=== PATIENT | male | born 1985 | race Caucasian/White ===

== ENCOUNTER 2025-05-13 18:59 | Inpatient (IN) | payer SELFPAY ==
[~2025-05-13] VITALS: Ht 167.6 cm; Wt 79.8 kg
[2025-05-13] MEDS: FOLIC ACID 1 MG, THIAMINE HCL 100 MG, MVI, ADULT NO.1 10 ML in DEXTROSE 5% WATER 1,000 ML IV ONE (19:45)
[2025-05-13] MEDS: SODIUM CHLORIDE 0.9% (SEPSIS BOLUS) IV ONE (19:56)
[2025-05-13] MEDS: PIPERACILLIN/TAZO 3.375G/50ML 50 ML IV ONE (19:57)
[2025-05-13] MEDS: LORAZEPAM 2MG/ML UD SYRINGE IV NR (19:57)
[2025-05-13 19:59] LABS: HEMATOCRIT. 31.6 % (42.0-52.0); HEMOGLOBIN. 10.7 g/dL (14.0-18.0); MEAN PLATELET VOLUME 10.2 fl (7.4-10.4); PLATELET 190 x1000/uL (130-400); RED BLOOD CELL COUNT 3.56 mill/uL (4.7-6.1); RED CELL DISTRIBUTION WIDTH 15.8 % (11.6-14.6)
[2025-05-13 20:10] LABS: LYMPHOCYTES % MANUAL 4.0 % (20.0-50.0); MONOCYTES % MANUAL 7.0 % (2.0-8.0); NEUTROPHILS % MANUAL 89.0 % (45.0-75.0); NUCLEATED RED BLOOD CELLS 4 /100 WBC; PLATELET ESTIMATE NORMAL
[2025-05-13 20:16] LABS: INR 1.2
[2025-05-13 20:23] LABS: TROPONIN I HIGH SENSITIVITY 14 ng/L (3.0-53)
[2025-05-13 20:34] LABS: CREATININE 1.0 mg/dL (0.6-1.3)
[2025-05-13 20:35] LABS: UREA NITROGEN BLOOD 23 mg/dL (9-23)
[2025-05-13 20:38] LABS: BG BASE EXCESS -4.7 mmol/L (-2.0-3.0); BG CARBOXYHEMOGLOBIN 0.6 % (0.5-1.5); BG DEOXYHEMOGLOBIN 5.6 % (0.0-5.0); BG FRACTION INSPIRED OXYGEN 100; BG HCO3 ACT 18.4 mmol/L (21.0-28.0); BG METHEMOGLOBIN 0.1 % (0.5-1.5); BG OXYGEN SATURATION 94.4 % (94.0-98.0); BG OXYHEMOGLOBIN 93.7 % (94.0-98.0); BG PCO2 27.9 mmHg (35.0-48.0); BG PH 7.437 (7.350-7.450); BG PO2 70.9 mmHg (83.0-108.0); BG SAMPLE SITE RIGHT RADIAL; BG TOTAL HEMOGLOBIN 11.0 g/dL (13.5-17.5); BG VENT MODE MASK - NRB
[2025-05-13 20:52] VITALS: PULSE 155; RESP 25; O2SAT 96
[2025-05-13] MEDS: PROPOFOL 10MG/ML 100ML 100 ML IV SCH (20:52)
[2025-05-13] MEDS: VANCOMYCIN 1G PREMIX 200 ML IV ONE (20:52)
[2025-05-13] MEDS: ROCURONIUM BROMIDE 10MG/ML VIAL 5ML IV ONE (20:53)
[2025-05-13] MEDS: ETOMIDATE 2MG/ML 10ML VIAL IV ONE (20:53)
[2025-05-13] MEDS ORDERED: FENTANYL 2500MCG/250ML PMX 250 ML IV ONE (21:15)
[2025-05-13 22:22] LABS: INFLUENZA TYPE A Presumptive Negative (Pres. Neg.)
[2025-05-13 22:23] LABS: INFLUENZA TYPE B Presumptive Negative (Pres. Neg.); RESPIRATORY SYNCYTIAL VIRUS Not Detected (Not Detectd)
[2025-05-13] MEDS: FENTANYL 2500MCG/250ML PMX 250 ML IV NR (22:29)
[2025-05-13 22:42] LABS: CLARITY URINE CLOUDY (CLEAR); COLOR URINE DARK YELLOW (YELLOW); GLUCOSE URINE NEGATIVE (NEGATIVE); KETONES URINE NEGATIVE (NEGATIVE); LEUKOCYTE ESTERASE URINE TRACE (NEGATIVE); NITRITE URINE NEGATIVE (NEGATIVE); OCCULT BLOOD URINE 1+ (NEGATIVE); PH URINE 5.5 (4.5-8.0); PROTEIN URINE 2+ (NEGATIVE); SPECIFIC GRAVITY URINE 1.019 (1.005-1.030); UROBILINOGEN URINE 1.0 E.U./dL (0.2-1.0)
[2025-05-13] MEDS ORDERED: PANTOPRAZOLE SODIUM 40 MG/VIAL IV SCH (22:45)
[2025-05-13] MEDS ORDERED: IPRATROPIUM/ALBUTEROL 0.5-3(2.5)MG/3ML NEB NEB PRN (22:45)
[2025-05-13] MEDS ORDERED: ACETAMINOPHEN 650MG/20.3ML UDC NG PRN (22:45)
[2025-05-13] MEDS ORDERED: AZITHROMYCIN 500MG/250ML 250 ML IV NR (22:59)
[2025-05-13] MEDS ORDERED: CEFTRIAXONE 2GM/50ML 50 ML IV NR (23:00)
[2025-05-13] MEDS ORDERED: FENTANYL 2500MCG/250ML PMX 250 ML IV PRN (23:00)
[2025-05-13 23:45] LABS: AMORPHOUS SEDIMENT URINE 1+ /lpf; BACTERIA URINE 3+; SQUAMOUS EPITHELIAL CELL URINE FEW /lpf (RARE/1+); WBC URINE 0-2 /hpf (0-2)
[2025-05-14] VITALS (109 sets, daily range): BP systolic 30–163; BP diastolic 11–129; PULSE 41–146; RESP 0–56; TEMP 35.2–39.1424; O2SAT 78–99
[2025-05-14 00:05] LABS: ETHANOL BLOOD < 10 mg/dL (<10); PROTEIN TOTAL 5.5 g/dL (6.0-8.3); TROPONIN I HIGH SENSITIVITY 23 ng/L (3.0-53)
[2025-05-14 00:06] LABS: ASPARTATE AMINOTRANSFERASE 147 IU/L (<34)
[2025-05-14 00:07] LABS: BILIRUBIN DIRECT 0.9 mg/dL (<=3.0); BILIRUBIN TOTAL 1.2 mg/dL (0.1-1.0)
[2025-05-14 00:34] LABS: BG BASE EXCESS -7.2 mmol/L (-2.0-3.0); BG CARBOXYHEMOGLOBIN 0.4 % (0.5-1.5); BG DEOXYHEMOGLOBIN 6.6 % (0.0-5.0); BG FRACTION INSPIRED OXYGEN 100; BG HCO3 ACT 22.7 mmol/L (21.0-28.0); BG METHEMOGLOBIN 0.3 % (0.5-1.5); BG OXYGEN SATURATION 93.4 % (94.0-98.0); BG OXYHEMOGLOBIN 92.7 % (94.0-98.0); BG PCO2 70.4 mmHg (35.0-48.0); BG PEEP (cmH2O) 10.0 cmH2O; BG PH 7.127 (7.350-7.450); BG PO2 88.9 mmHg (83.0-108.0); BG SAMPLE SITE RIGHT BRACHIAL; BG TIDAL VOLUME(mL) 400.0 mL; BG TOTAL HEMOGLOBIN 11.2 g/dL (13.5-17.5); BG TOTAL RESPIRATORY RATE 25 b/min; BG VENT MODE VENT - PRVC; BG VENT RATE 25.0 set
[2025-05-14] MEDS: PHENYLEPHRINE 50MG/250ML PMX 250 ML IV PRN (01:47)
[2025-05-14] MEDS: ACETAMINOPHEN 650MG/20.3ML UDC PO PRN (01:55)
[2025-05-14] MEDS: SODIUM CHLORIDE 0.9% 1,000 ML IV SCH (02:27)
[2025-05-14] MEDS ORDERED: SODIUM CHLORIDE 0.9% 1,000 ML IV SCH (02:30)
[2025-05-14 03:46] LABS: BG BASE EXCESS -9.5 mmol/L (-2.0-3.0); BG CARBOXYHEMOGLOBIN 0.3 % (0.5-1.5); BG DEOXYHEMOGLOBIN 9.7 % (0.0-5.0); BG FRACTION INSPIRED OXYGEN 100; BG HCO3 ACT 18.8 mmol/L (21.0-28.0); BG METHEMOGLOBIN 0.3 % (0.5-1.5); BG OXYGEN SATURATION 90.2 % (94.0-98.0); BG OXYHEMOGLOBIN 89.7 % (94.0-98.0); BG PCO2 52.0 mmHg (35.0-48.0); BG PEEP (cmH2O) 10.0 cmH2O; BG PH 7.177 (7.350-7.450); BG PO2 69.7 mmHg (83.0-108.0); BG SAMPLE SITE RIGHT RADIAL; BG TIDAL VOLUME(mL) 400.0 mL; BG TOTAL HEMOGLOBIN 11.7 g/dL (13.5-17.5); BG VENT MODE VENT - AC; BG VENT RATE 28.0 set
[2025-05-14] MEDS: SODIUM BICARBONATE 100 MEQ in DEXTROSE 5% WATER 900 ML IV SCH (03:48)
[2025-05-14] MEDS: CALCIUM GLUCONATE 100MG/ML 10ML VIAL IV NR (03:48)
[2025-05-14] MEDS: FOLIC ACID 1 MG, THIAMINE HCL 100 MG, MVI, ADULT NO.1 10 ML in DEXTROSE 5% WATER 1,000 ML IV ONE (03:49)
[2025-05-14] MEDS: PROPOFOL 10MG/ML 100ML 100 ML IV PRN (05:19)
[2025-05-14] MEDS: VASOPRESSIN 20 UNIT in SODIUM CHLORIDE 0.9% 99 ML IV PRN (06:20)
[2025-05-14 07:01] LABS: RED BLOOD CELL COUNT 3.46 mill/uL (4.7-6.1); RED CELL DISTRIBUTION WIDTH 16.2 % (11.6-14.6)
[2025-05-14] MEDS ORDERED: LIDOCAINE HCL 1% 10 MG/ML 10ML VIAL ONE (07:09)
[2025-05-14 07:11] LABS: UREA NITROGEN BLOOD 30.0 mg/dL (9-23)
[2025-05-14 07:12] LABS: CREATININE 1.7 mg/dL (0.6-1.3)
[2025-05-14] MEDS ORDERED: SODIUM CHLORIDE 0.9% 250 ML IV NR (08:45)
[2025-05-14] MEDS ORDERED: ONDANSETRON HCL 4MG/2ML INJ IV PRN (09:00)
[2025-05-14] MEDS ORDERED: SODIUM CHLORIDE 3% 500ML IV SOLN IV ONE (09:00)
[2025-05-14 09:22] LABS: BG BASE EXCESS -10.4 mmol/L (-2.0-3.0); BG CARBOXYHEMOGLOBIN 1.3 % (0.5-1.5); BG DEOXYHEMOGLOBIN 9.0 % (0.0-5.0); BG FRACTION INSPIRED OXYGEN 100; BG HCO3 ACT 17.5 mmol/L (21.0-28.0); BG METHEMOGLOBIN 0.3 % (0.5-1.5); BG OXYGEN SATURATION 90.9 % (94.0-98.0); BG OXYHEMOGLOBIN 89.4 % (94.0-98.0); BG PCO2 47.3 mmHg (35.0-48.0); BG PEEP (cmH2O) 10.0 cmH2O; BG PH 7.187 (7.350-7.450); BG PO2 65.7 mmHg (83.0-108.0); BG SAMPLE SITE RIGHT BRACHIAL; BG TIDAL VOLUME(mL) 500.0 mL; BG TOTAL HEMOGLOBIN 11.6 g/dL (13.5-17.5); BG VENT MODE VENT - PRVC; BG VENT RATE 28.0 set
[2025-05-14] MEDS ORDERED: FAMOTIDINE 20MG/2ML VIAL IV SCH (09:30)
[2025-05-14] MEDS: ASCORBIC ACID 500 MG TABLET PO SCH (09:33)
[2025-05-14] MEDS: ENOXAPARIN 40MG/0.4ML SYR SUBCUT SCH (09:33)
[2025-05-14] MEDS: FOLIC ACID 1MG TABLET PO SCH (09:33)
[2025-05-14] MEDS: MULTIVITAMINS,THER W-MINERALS TABLET PO SCH (09:33)
[2025-05-14] MEDS: PIPERACILLIN/TAZO 3.375G/50ML 50 ML IV SCH (09:43)
[2025-05-14] MEDS ORDERED: LORAZEPAM 2MG/ML UD SYRINGE IV PRN (10:00)
[2025-05-14] MEDS: FAMOTIDINE 20MG/2ML VIAL IV SCH (10:22)
[2025-05-14] MEDS: SODIUM CHLORIDE 3% 500 ML IV ONE (10:23)
[2025-05-14 11:04] LABS: PLATELET 124 x1000/uL (130-400)
[2025-05-14] MEDS: VANCOMYCIN 750MG PREMIX 150 ML IV SCH (11:13)
[2025-05-14] MEDS: AZITHROMYCIN 500MG/250ML 250 ML IV SCH (11:14)
[2025-05-14 12:50] LABS: BG BASE EXCESS -14.3 mmol/L (-2.0-3.0); BG CARBOXYHEMOGLOBIN 0.3 % (0.5-1.5); BG DEOXYHEMOGLOBIN 17.3 % (0.0-5.0); BG FRACTION INSPIRED OXYGEN 100; BG HCO3 ACT 13.2 mmol/L (21.0-28.0); BG METHEMOGLOBIN 0.3 % (0.5-1.5); BG OXYGEN SATURATION 82.6 % (94.0-98.0); BG OXYHEMOGLOBIN 82.1 % (94.0-98.0); BG PCO2 36.9 mmHg (35.0-48.0); BG PEEP (cmH2O) 10.0 cmH2O; BG PH 7.171 (7.350-7.450); BG PO2 52.2 mmHg (83.0-108.0); BG SAMPLE SITE LEFT FEMORAL; BG TIDAL VOLUME(mL) 500.0 mL; BG TOTAL HEMOGLOBIN 10.5 g/dL (13.5-17.5); BG TOTAL RESPIRATORY RATE 28 b/min; BG VENT MODE VENT-PRVC; BG VENT RATE 28.0 set
[2025-05-14] MEDS: NOREPINEPHRINE 8MG/250ML PMX 250 ML IV PRN (13:15)
[2025-05-14 13:34] LABS: LDL CHOLESTEROL 7 mg/dL (5-100); TRIGLYCERIDE 97 mg/dL (0-150)
[2025-05-14 13:48] LABS: BG BASE EXCESS -21.1 mmol/L (-2.0-3.0); BG CARBOXYHEMOGLOBIN 0.3 % (0.5-1.5); BG DEOXYHEMOGLOBIN 9.2 % (0.0-5.0); BG FRACTION INSPIRED OXYGEN 100; BG HCO3 ACT 11.7 mmol/L (21.0-28.0); BG METHEMOGLOBIN 0.3 % (0.5-1.5); BG OXYGEN SATURATION 90.7 % (94.0-98.0); BG OXYHEMOGLOBIN 90.2 % (94.0-98.0); BG PCO2 63.3 mmHg (35.0-48.0); BG PEEP (cmH2O) 10.0 cmH2O; BG PH 6.886 (7.350-7.450); BG PO2 86.0 mmHg (83.0-108.0); BG SAMPLE SITE ALINE; BG TIDAL VOLUME(mL) 500.0 mL; BG TOTAL HEMOGLOBIN 10.6 g/dL (13.5-17.5); BG TOTAL RESPIRATORY RATE 28 b/min; BG VENT MODE VENT-PRVC; BG VENT RATE 28.0 set
[2025-05-14] MEDS: CHLORDIAZEPOXIDE 10MG CAPSULE PO SCH (14:00)
[2025-05-14] MEDS: HYDROCORTISONE SOD SUCCINATE 100 MG/2 ML VIAL IV SCH (14:10)
[2025-05-14] MEDS: DIGOXIN 500MCG/2ML AMP IV NR (14:11)
[2025-05-14] MEDS ORDERED: HEPARIN 80 UNITS/KG BOLUS IV SCH (14:30)
[2025-05-14] MEDS ORDERED: HEPARIN 25,000 UNITS PREMIX 250 ML IV SCH (14:30)
[2025-05-14] MEDS: SODIUM BICARBONATE 8.4% 50MEQ/50ML SYR IV SCH (14:48)
[2025-05-14] MEDS: HEPARIN 25,000 UNITS PREMIX 250 ML IV SCH (15:18)
[2025-05-14 16:08] LABS: BG BASE EXCESS -11.9 mmol/L (-2.0-3.0); BG CARBOXYHEMOGLOBIN 0.2 % (0.5-1.5); BG DEOXYHEMOGLOBIN 10.6 % (0.0-5.0); BG HCO3 ACT 17.4 mmol/L (21.0-28.0); BG METHEMOGLOBIN 0.1 % (0.5-1.5); BG OXYGEN SATURATION 89.4 % (94.0-98.0); BG OXYHEMOGLOBIN 89.1 % (94.0-98.0); BG PCO2 54.7 mmHg (35.0-48.0); BG PEEP (cmH2O) 10.0 cmH2O; BG PH 7.121 (7.350-7.450); BG PO2 63.3 mmHg (83.0-108.0); BG SAMPLE SITE ALINE; BG TIDAL VOLUME(mL) 500.0 mL; BG TOTAL HEMOGLOBIN 11.9 g/dL (13.5-17.5); BG VENT MODE VENT - PRVC; BG VENT RATE 28.0 set
[2025-05-14 17:42] LABS: CREATININE 2.1 mg/dL (0.6-1.3); TROPONIN I HIGH SENSITIVITY 38 ng/L (3.0-53)
[2025-05-14 17:43] LABS: CREATINE KINASE MB FRACTION 1.4 ng/mL (0.5-3.6); PROTEIN TOTAL 4.2 g/dL (6.0-8.3); UREA NITROGEN BLOOD 33 mg/dL (9-23)
[2025-05-14 17:45] LABS: BILIRUBIN TOTAL 1.3 mg/dL (0.1-1.0)
[2025-05-14] MEDS ORDERED: CALCIUM CHLORIDE 1GM/10ML SYR IV ONE (18:00)
[2025-05-14 18:15] LABS: ASPARTATE AMINOTRANSFERASE 1183 IU/L (<34)
[2025-05-14] MEDS ORDERED: Venofer 200mg IV x3 days XX SCH (18:15)
[2025-05-14 18:16] LABS: LACTATE DEHYDROGENASE 1210 IU/L (120-246)
[2025-05-14 18:19] LABS: HEPATITIS A AB IGM NEGATIVE (Negative); HEPATITIS B CORE AB IGM NEGATIVE (Negative)
[2025-05-14 18:20] LABS: HEPATITIS C AB NON REACTIVE (Neg) (Negative)
[2025-05-14] MEDS ORDERED: DEXTROSE 50% WATER 50ML SYRINGE IV PRN (18:30)
[2025-05-14] MEDS: IRON SUCROSE COMPLEX 100 MG/5 ML ML IV SCH (18:38)
[2025-05-14] MEDS: POTASSIUM CHLORIDE 20MEQ/PACKET PO NR (18:38)
[2025-05-14 18:45] LABS: VITAMIN B12 SERUM > 2000 pg/mL (211-911)
[2025-05-14 19:10] LABS: BG BASE EXCESS -9.2 mmol/L (-2.0-3.0); BG CARBOXYHEMOGLOBIN 0.4 % (0.5-1.5); BG DEOXYHEMOGLOBIN 9.0 % (0.0-5.0); BG FRACTION INSPIRED OXYGEN 100; BG HCO3 ACT 18.8 mmol/L (21.0-28.0); BG METHEMOGLOBIN 0.0 % (0.5-1.5); BG OXYGEN SATURATION 91.0 % (94.0-98.0); BG OXYHEMOGLOBIN 90.6 % (94.0-98.0); BG PCO2 49.5 mmHg (35.0-48.0); BG PEEP (cmH2O) 10.0 cmH2O; BG PH 7.198 (7.350-7.450); BG PO2 64.3 mmHg (83.0-108.0); BG SAMPLE SITE ALINE; BG TIDAL VOLUME(mL) 500.0 mL; BG TOTAL HEMOGLOBIN 12.2 g/dL (13.5-17.5); BG VENT MODE VENT - PRVC; BG VENT RATE 32.0 set
[2025-05-14] MEDS: CALCIUM CHLORIDE 2,000 MG in DEXT 5% WATER 250 ML IV NR (19:47)
[2025-05-14] MEDS ORDERED: CEFTRIAXONE 2GM/50ML 50 ML IV SCH ×2 (20:00)
[2025-05-14] MEDS ORDERED: HEPARIN BOLUS PRN aPTT <36 IV (20:30)
[2025-05-14] MEDS ORDERED: HEPARIN BOLUS PRN aPTT 30-44 IV (20:30)
[2025-05-14] MEDS ORDERED: HEPARIN BOLUS PRN aPTT <30 IV (20:30)
[2025-05-14] MEDS ORDERED: HEPARIN BOLUS PRN aPTT 37-44 IV (20:30)
[2025-05-14 20:43] LABS: *AMPHETAMINES SCREEN URINE NEGATIVE (NEGATIVE); *BARBITURATES SCREEN URINE NEGATIVE (NEGATIVE); *BENZODIAZEPINES SCREEN URINE NEGATIVE (NEGATIVE); *COCAINE SCREEN URINE NEGATIVE (NEGATIVE); CANNABINOID URINE SCREEN NEGATIVE (NEGATIVE); ECSTASY MDMA SCREEN URINE NEGATIVE (NEGATIVE); METHADONE URINE SCREEN NEGATIVE (NEGATIVE); OPIATES URINE SCREEN NEGATIVE (NEGATIVE); PHENCYCLIDINE URINE SCREEN NEGATIVE (NEGATIVE)
[2025-05-14] MEDS ORDERED: AZITHROMYCIN 500MG/250ML 250 ML IV SCH ×2 (21:00)
[2025-05-14] MEDS: BLOOD SUGAR DIAGNOSTIC STRIP TEST SCH (21:13)
[2025-05-14] MEDS: NOREPINEPHRINE 32 MG in DEXT 5% WATER 218 ML IV PRN (21:59)
[2025-05-14] MEDS: LEVETIRACETAM 1000MG PREMIX 100 ML IV SCH (22:37)
[2025-05-14] MEDS: MIDAZOLAM 100MG/100ML PMX 100 ML IV PRN (22:38)
[2025-05-15] VITALS (93 sets, daily range): BP systolic 76–129; BP diastolic 49–82; PULSE 107–124; RESP 0–32; TEMP 36.1–38; O2SAT 94–100
[2025-05-15] MEDS: PROPOFOL 10MG/ML 100ML 100 ML IV PRN (00:52)
[2025-05-15] MEDS: SODIUM BICARBONATE 150 MEQ in DEXTROSE 5% WATER 850 ML IV SCH (01:12)
[2025-05-15] MEDS: PHENYLEPHRINE 100 MG in DEXT 5% WATER 240 ML IV PRN (02:38)
[2025-05-15] MEDS: LEVETIRACETAM 500MG PREMIX 100 ML IV SCH (08:44)
[2025-05-15] MEDS: KCL 10MEQ/50ML PREMIX 50 ML IV SCH (08:45)
[2025-05-15 08:59] LABS: BG BASE EXCESS -6.2 mmol/L (-2.0-3.0); BG CARBOXYHEMOGLOBIN 0.6 % (0.5-1.5); BG DEOXYHEMOGLOBIN 4.9 % (0.0-5.0); BG FRACTION INSPIRED OXYGEN 100; BG HCO3 ACT 19.9 mmol/L (21.0-28.0); BG METHEMOGLOBIN 0.0 % (0.5-1.5); BG OXYGEN SATURATION 95.1 % (94.0-98.0); BG OXYHEMOGLOBIN 94.5 % (94.0-98.0); BG PCO2 41.8 mmHg (35.0-48.0); BG PEEP (cmH2O) 10.0 cmH2O; BG PH 7.296 (7.350-7.450); BG PO2 74.9 mmHg (83.0-108.0); BG SAMPLE SITE ALINE; BG TIDAL VOLUME(mL) 500.0 mL; BG TOTAL HEMOGLOBIN 11.1 g/dL (13.5-17.5); BG VENT MODE VENT - PRVC; BG VENT RATE 32.0 set
[2025-05-15] MEDS ORDERED: LORAZEPAM 2MG/ML UD SYRINGE IV PRN (09:00)
[2025-05-15 09:09] LABS: CREATININE 2.7 mg/dL (0.6-1.3)
[2025-05-15 09:10] LABS: UREA NITROGEN BLOOD 43 mg/dL (9-23)
[2025-05-15 09:12] LABS: BILIRUBIN TOTAL 1.9 mg/dL (0.1-1.0); PHOSPHORUS 7.0 mg/dL (2.5-4.9)
[2025-05-15] MEDS: IPRATROPIUM BROMIDE (0.02%) 0.5MG/2.5ML NEB HHN SCH (09:19)
[2025-05-15 12:18] LABS: HEMATOCRIT. 31.3 % (42.0-52.0); HEMOGLOBIN. 10.4 g/dL (14.0-18.0); MEAN PLATELET VOLUME 11.1 fl (7.4-10.4); RED BLOOD CELL COUNT 3.44 mill/uL (4.7-6.1); RED CELL DISTRIBUTION WIDTH 16.4 % (11.6-14.6)
[2025-05-15 12:24] LABS: PLATELET 40 x1000/uL (130-400)
[2025-05-15] MEDS ORDERED: IOHEXOL-350 100 ML BOTTLE ONE (14:20)
[2025-05-15 15:49] LABS: BG BASE EXCESS -6.4 mmol/L (-2.0-3.0); BG CARBOXYHEMOGLOBIN 0.0 % (0.5-1.5); BG DEOXYHEMOGLOBIN 6.4 % (0.0-5.0); BG FRACTION INSPIRED OXYGEN 100; BG HCO3 ACT 20.9 mmol/L (21.0-28.0); BG METHEMOGLOBIN 0.0 % (0.5-1.5); BG OXYGEN SATURATION 93.6 % (94.0-98.0); BG OXYHEMOGLOBIN 93.6 % (94.0-98.0); BG PCO2 49.3 mmHg (35.0-48.0); BG PEEP (cmH2O) 10.0 cmH2O; BG PH 7.246 (7.350-7.450); BG PO2 74.5 mmHg (83.0-108.0); BG SAMPLE SITE ALINE; BG TIDAL VOLUME(mL) 450.0 mL; BG TOTAL HEMOGLOBIN 11.7 g/dL (13.5-17.5); BG TOTAL RESPIRATORY RATE 32 b/min; BG VENT MODE VENT-PRVC; BG VENT RATE 32.0 set
[2025-05-15 19:08] LABS: BG BASE EXCESS -3.8 mmol/L (-2.0-3.0); BG CARBOXYHEMOGLOBIN 0.3 % (0.5-1.5); BG DEOXYHEMOGLOBIN 5.4 % (0.0-5.0); BG FRACTION INSPIRED OXYGEN 100; BG HCO3 ACT 23.2 mmol/L (21.0-28.0); BG METHEMOGLOBIN 0.3 % (0.5-1.5); BG OXYGEN SATURATION 94.6 % (94.0-98.0); BG OXYHEMOGLOBIN 94.0 % (94.0-98.0); BG PCO2 50.4 mmHg (35.0-48.0); BG PEEP (cmH2O) 10.0 cmH2O; BG PH 7.280 (7.350-7.450); BG PO2 75.8 mmHg (83.0-108.0); BG SAMPLE SITE ALINE; BG TIDAL VOLUME(mL) 450.0 mL; BG TOTAL HEMOGLOBIN 11.2 g/dL (13.5-17.5); BG TOTAL RESPIRATORY RATE 32 b/min; BG VENT MODE VENT-PRVC; BG VENT RATE 32.0 set
[2025-05-16] VITALS (105 sets, daily range): BP systolic 80–131; BP diastolic 53–81; PULSE 100–126; RESP 0–43; TEMP 35.9–38.2; O2SAT 83–99
[2025-05-16 05:41] LABS: HEMATOCRIT. 29.0 % (42.0-52.0); HEMOGLOBIN. 9.5 g/dL (14.0-18.0); MEAN PLATELET VOLUME 10.9 fl (7.4-10.4); RED BLOOD CELL COUNT 3.22 mill/uL (4.7-6.1); RED CELL DISTRIBUTION WIDTH 16.3 % (11.6-14.6)
[2025-05-16 06:53] LABS: PLATELET 28 x1000/uL (130-400)
[2025-05-16] MEDS: PROPOFOL 10MG/ML 100ML 100 ML IV PRN (07:36)
[2025-05-16] MEDS: ACETAMINOPHEN 325MG TABLET PO PRN (08:30)
[2025-05-16 09:11] LABS: FOLATE HEMATOCRIT 27.5 % (37.5-51.0); HIV SCREEN 4G Preliminary Reactive (Non Reactive)
[2025-05-16 09:30] LABS: BG BASE EXCESS -7.5 mmol/L (-2.0-3.0); BG CARBOXYHEMOGLOBIN 0.0 % (0.5-1.5); BG DEOXYHEMOGLOBIN 8.4 % (0.0-5.0); BG FRACTION INSPIRED OXYGEN 100; BG HCO3 ACT 21.9 mmol/L (21.0-28.0); BG METHEMOGLOBIN 0.2 % (0.5-1.5); BG OXYGEN SATURATION 91.6 % (94.0-98.0); BG OXYHEMOGLOBIN 91.4 % (94.0-98.0); BG PCO2 65.6 mmHg (35.0-48.0); BG PEEP (cmH2O) 10.0 cmH2O; BG PH 7.141 (7.350-7.450); BG PO2 78.5 mmHg (83.0-108.0); BG SAMPLE SITE ALINE; BG TIDAL VOLUME(mL) 500.0 mL; BG TOTAL HEMOGLOBIN 10.6 g/dL (13.5-17.5); BG VENT MODE VENT - PRVC; BG VENT RATE 32.0 set
[2025-05-16 10:53] LABS: TRIGLYCERIDE 220 mg/dL (0-150)
[2025-05-16 10:54] LABS: UREA NITROGEN BLOOD 61 mg/dL (9-23)
[2025-05-16 10:56] LABS: BILIRUBIN TOTAL 2.1 mg/dL (0.1-1.0)
[2025-05-16 10:58] LABS: CREATININE 3.7 mg/dL (0.6-1.3)
[2025-05-16 11:00] LABS: PHOSPHORUS 8.5 mg/dL (2.5-4.9)
[2025-05-16] MEDS: SODIUM BICARBONATE 8.4% 50MEQ/50ML SYR IV SCH (11:41)
[2025-05-16 12:14] LABS: BAND% 30.0 % (1.0-6.0); LYMPHOCYTES % MANUAL 2.0 % (20.0-50.0); METAMYELOCYTES % 4.0 % (0-0); MONOCYTES % MANUAL 2.0 % (2.0-8.0); MYELOCYTES % 3.0 % (0-0); NEUTROPHILS % MANUAL 59.0 % (45.0-75.0); PLATELET ESTIMATE MARKEDLY DECREASED
[2025-05-16] MEDS: SODIUM BICARBONATE 150 MEQ in DEXTROSE 5% WATER 850 ML IV SCH (14:32)
[2025-05-16] MEDS: ACETAMINOPHEN 1000MG/100ML 100 ML IV SCH ×2 (14:45→18:51)
[2025-05-16 15:46] LABS: BG BASE EXCESS -4.5 mmol/L (-2.0-3.0); BG CARBOXYHEMOGLOBIN 0.3 % (0.5-1.5); BG DEOXYHEMOGLOBIN 13.3 % (0.0-5.0); BG FRACTION INSPIRED OXYGEN 100; BG HCO3 ACT 23.1 mmol/L (21.0-28.0); BG METHEMOGLOBIN 0.3 % (0.5-1.5); BG OXYGEN SATURATION 86.6 % (94.0-98.0); BG OXYHEMOGLOBIN 86.1 % (94.0-98.0); BG PCO2 54.5 mmHg (35.0-48.0); BG PEEP (cmH2O) 10.0 cmH2O; BG PH 7.245 (7.350-7.450); BG PO2 59.3 mmHg (83.0-108.0); BG SAMPLE SITE ALINE; BG TIDAL VOLUME(mL) 500.0 mL; BG TOTAL HEMOGLOBIN 11.1 g/dL (13.5-17.5); BG VENT MODE VENT - PRVC; BG VENT RATE 40.0 set
[2025-05-16 16:18] LABS: LYMPHOCYTES % MANUAL 3.0 % (20.0-50.0); MONOCYTES % MANUAL 18.0 % (2.0-8.0); NEUTROPHILS % MANUAL 79.0 % (45.0-75.0); PLATELET ESTIMATE MARKEDLY DECREASED
[2025-05-16 17:27] LABS: RED BLOOD CELL COUNT 3.15 mill/uL (4.7-6.1); RED CELL DISTRIBUTION WIDTH 16.4 % (11.6-14.6)
[2025-05-16] MEDS: CALCIUM GLUCONATE 100MG/ML 10ML VIAL IV SCH (17:32)
[2025-05-16 17:38] LABS: INR 1.2
[2025-05-16 17:51] LABS: PLATELET 40 x1000/uL (130-400)
[2025-05-16 19:16] LABS: BG BASE EXCESS -7.6 mmol/L (-2.0-3.0); BG CARBOXYHEMOGLOBIN 0.3 % (0.5-1.5); BG DEOXYHEMOGLOBIN 18.5 % (0.0-5.0); BG FRACTION INSPIRED OXYGEN 100; BG HCO3 ACT 20.8 mmol/L (21.0-28.0); BG METHEMOGLOBIN 0.0 % (0.5-1.5); BG OXYGEN SATURATION 81.4 % (94.0-98.0); BG OXYHEMOGLOBIN 81.2 % (94.0-98.0); BG PCO2 56.1 mmHg (35.0-48.0); BG PEEP (cmH2O) 10.0 cmH2O; BG PH 7.187 (7.350-7.450); BG PO2 54.3 mmHg (83.0-108.0); BG SAMPLE SITE ALINE; BG TIDAL VOLUME(mL) 525.0 mL; BG TOTAL HEMOGLOBIN 10.7 g/dL (13.5-17.5); BG VENT MODE VENT - PRVC; BG VENT RATE 38.0 set
[2025-05-16 22:08] LABS: BG BASE EXCESS -10.3 mmol/L (-2.0-3.0); BG CARBOXYHEMOGLOBIN 0.3 % (0.5-1.5); BG DEOXYHEMOGLOBIN 23.8 % (0.0-5.0); BG FRACTION INSPIRED OXYGEN 100; BG HCO3 ACT 22.1 mmol/L (21.0-28.0); BG METHEMOGLOBIN 0.3 % (0.5-1.5); BG OXYGEN SATURATION 76.1 % (94.0-98.0); BG OXYHEMOGLOBIN 75.6 % (94.0-98.0); BG PCO2 92.7 mmHg (35.0-48.0); BG PEEP (cmH2O) 10.0 cmH2O; BG PH 6.995 (7.350-7.450); BG PIP 28.0 cmH2O; BG PO2 57.9 mmHg (83.0-108.0); BG SAMPLE SITE ALINE; BG TOTAL HEMOGLOBIN 10.8 g/dL (13.5-17.5); BG VENT MODE VENT - P/C; BG VENT RATE 34.0 set
[2025-05-16] MEDS: FENTANYL 2500MCG/250ML PMX 250 ML IV PRN (22:20)
[2025-05-16] MEDS: SODIUM BICARBONATE 8.4% 50MEQ/50ML SYR IV NR (22:31)
[2025-05-17] VITALS (36 sets, daily range): BP systolic 91–110; BP diastolic 53–66; PULSE 98–107; RESP 26–38; TEMP 35.9–36.5; O2SAT 67–88
[2025-05-17] MEDS: BLOOD SUGAR DIAGNOSTIC STRIP TEST SCH
[2025-05-17 00:08] LABS: BG BASE EXCESS -7.3 mmol/L (-2.0-3.0); BG CARBOXYHEMOGLOBIN 0.1 % (0.5-1.5); BG DEOXYHEMOGLOBIN 19.2 % (0.0-5.0); BG FRACTION INSPIRED OXYGEN 100; BG HCO3 ACT 21.4 mmol/L (21.0-28.0); BG METHEMOGLOBIN 0.3 % (0.5-1.5); BG OXYGEN SATURATION 80.7 % (94.0-98.0); BG OXYHEMOGLOBIN 80.4 % (94.0-98.0); BG PCO2 59.1 mmHg (35.0-48.0); BG PEEP (cmH2O) 10.0 cmH2O; BG PH 7.176 (7.350-7.450); BG PO2 53.3 mmHg (83.0-108.0); BG SAMPLE SITE ALINE; BG TIDAL VOLUME(mL) 525.0 mL; BG TOTAL HEMOGLOBIN 11.0 g/dL (13.5-17.5); BG VENT MODE VENT - APRV; BG VENT RATE 38.0 set
[2025-05-17] MEDS: PROPOFOL 10MG/ML 100ML 100 ML IV PRN (04:11)
[2025-05-17 04:30] LABS: BG BASE EXCESS -13.3 mmol/L (-2.0-3.0); BG CARBOXYHEMOGLOBIN 0.2 % (0.5-1.5); BG DEOXYHEMOGLOBIN 28.9 % (0.0-5.0); BG FRACTION INSPIRED OXYGEN 100; BG HCO3 ACT 21.8 mmol/L (21.0-28.0); BG METHEMOGLOBIN 0.3 % (0.5-1.5); BG OXYGEN SATURATION 71.0 % (94.0-98.0); BG OXYHEMOGLOBIN 70.6 % (94.0-98.0); BG PCO2 125.9 mmHg (35.0-48.0); BG PEEP (cmH2O) 12.0 cmH2O; BG PH 6.857 (7.350-7.450); BG PO2 57.2 mmHg (83.0-108.0); BG SAMPLE SITE ALINE; BG TIDAL VOLUME(mL) 350.0 mL; BG TOTAL HEMOGLOBIN 11.1 g/dL (13.5-17.5); BG VENT MODE PRVC; BG VENT RATE 28.0 set
[2025-05-17 05:44] LABS: HEMATOCRIT. 30.8 % (42.0-52.0); HEMOGLOBIN. 9.7 g/dL (14.0-18.0); MEAN PLATELET VOLUME 10.1 fl (7.4-10.4); RED BLOOD CELL COUNT 3.22 mill/uL (4.7-6.1); RED CELL DISTRIBUTION WIDTH 17.0 % (11.6-14.6)
[2025-05-17] MEDS: SODIUM BICARBONATE 8.4% 50MEQ/50ML SYR IV NR ×2 (05:45→06:08)
[2025-05-17 05:59] LABS: PROTEIN TOTAL 5.0 g/dL (6.0-8.3)
[2025-05-17 06:00] LABS: CREATININE 4.4 mg/dL (0.6-1.3)
[2025-05-17 06:01] LABS: BILIRUBIN DIRECT 1.9 mg/dL (<=3.0); BILIRUBIN TOTAL 2.5 mg/dL (0.1-1.0); UREA NITROGEN BLOOD 79 mg/dL (9-23)
[2025-05-17 06:03] LABS: BILIRUBIN TOTAL 2.4 mg/dL (0.1-1.0)
[2025-05-17] MEDS: INSULIN REGULAR (HUMULIN R) 1000UNITS/10ML VIAL IV NR (06:08)
[2025-05-17] MEDS: CALCIUM GLUCONATE 1GM PREMIX 50 ML IV NR (06:08)
[2025-05-17] MEDS: DEXTROSE 50% WATER 50ML SYRINGE IV NR (06:08)
[2025-05-17 06:11] LABS: ASPARTATE AMINOTRANSFERASE 2171 IU/L (<34)
[2025-05-17] MEDS: SODIUM ZIRCONIUM CYCLOSILICATE 10GM/PACKET PO NR (06:15)
[2025-05-17 06:23] LABS: PHOSPHORUS 16.1 mg/dL (2.5-4.9)
[2025-05-17] MEDS ORDERED: MORPHINE SULFATE 250 MG in DEXT 5% WATER 225 ML IV PRN (06:45)
[2025-05-17 10:37] LABS: BAND% 40.0 % (1.0-6.0); LYMPHOCYTES % MANUAL 2.0 % (20.0-50.0); METAMYELOCYTES % 1.0 % (0-0); MONOCYTES % MANUAL 3.0 % (2.0-8.0); NEUTROPHILS % MANUAL 54.0 % (45.0-75.0); NUCLEATED RED BLOOD CELLS 1 /100 WBC
[2025-05-17 10:38] LABS: PLATELET ESTIMATE MARKEDLY DECREASED
[2025-05-17 10:40] LABS: PLATELET 29 x1000/uL (130-400)
[2025-05-17 13:07] LABS: ABSOLUTE BASOPHILS 0.0 x10E3/uL (0.0-0.2); ABSOLUTE EOSINOPHILS 0.5 x10E3/uL (0.0-0.4); ABSOLUTE LYMPHOCYTES 0.9 x10E3/uL (0.7-3.1); ABSOLUTE MONOCYTES 0.9 x10E3/uL (0.1-0.9); ABSOLUTE NEUTROPHILS 39.6 x10E3/uL (1.4-7.0); BANDS 14 % (Not Estab.); BASOPHILS 0 % (Not Estab.); EOSINOPHILS 1 % (Not Estab.); HEMATOLOGY COMMENT Note: (.); IMMATURE CELLS Note (.); LYMPHOCYTES 2 % (Not Estab.); MEAN CORPUSCULAR HGB CONC. 34.9 g/dL (31.5-35.7); MONOCYTES 2 % (Not Estab.); NEUTROPHILS 71 % (Not Estab.); NUCLEATED RBC 2 % (0 - 0); PLATELETS 30 x10E3/uL (150-450); RBC 3.19 x10E6/uL (4.14-5.80); RED CELL DISTRIBUTION WIDTH 14.3 % (11.6-15.4); WBC 46.6 x10E3/uL (3.4-10.8)
[2025-05-18 11:38] LABS: FOLATE HEMOLYSATE 377.0 ng/mL (Not Estab.); FOLATE RBC 1371 ng/mL (>498)
[2025-05-18 13:10] LABS: % CD 3 POS. LYMPHOCYTES 74.5 % (57.5-86.2); % CD 4 POS. LYMPHOCYTES 57.5 % (30.8-58.5); % CD 8 POS. LYMPH 16.8 % (12.0-35.5); ABSOLUTE CD 3 671 /uL (622-2402); ABSOLUTE CD 4 HELPER 518 /uL (359-1519); ABSOLUTE CD 8 SUPPRESSOR 151 /uL (109-897)
[2025-05-19 08:10] LABS: HIV 1 ABS Reactive (Non Reactive); HIV 2 ABS Non Reactive (Non Reactive)
== END 2025-05-17 08:57 | DRG 720 ==
LOC: ER 18:59 → CVICU 21:46 → EDBEDREQSVC 21:52 → EDBEDREQ 21:52 → EDBEDREQTM 21:52 → ENRESERV 23:49
PROVIDERS: ADMIT Internal Medicine; ATTEND Internal Medicine
PROC: 5A1945Z Respiratory Ventilation, 24-96 Consecutive Hours (ICD-10-PCS; 2025-05-13)
PROC: 0BH17EZ Insertion of Endotracheal Airway into Trachea, Via Natural or Artificial Opening (ICD-10-PCS; 2025-05-13)
PROC: 5A12012 Performance of Cardiac Output, Single, Manual (ICD-10-PCS; 2025-05-14)
PROC: 02HV33Z Insertion of Infusion Device into Superior Vena Cava, Percutaneous Approach (ICD-10-PCS; 2025-05-14)
PROC: B548ZZA Ultrasonography of Superior Vena Cava, Guidance (ICD-10-PCS; 2025-05-14)
PROC: 03HY32Z Insertion of Monitoring Device into Upper Artery, Percutaneous Approach (ICD-10-PCS; 2025-05-14)
PROC: 30233R1 Transfusion of Nonautologous Platelets into Peripheral Vein, Percutaneous Approach (ICD-10-PCS; principal; 2025-05-16)
DX: A40.3 Sepsis due to Streptococcus pneumoniae (principal); I46.9 Cardiac arrest, cause unspecified; K72.00 Acute and subacute hepatic failure without coma; J96.02 Acute respiratory failure with hypercapnia; N17.0 Acute kidney failure with tubular necrosis; J69.0 Pneumonitis due to inhalation of food and vomit; J96.01 Acute respiratory failure with hypoxia; E43 Unspecified severe protein-calorie malnutrition; G93.41 Metabolic encephalopathy; R65.21 Severe sepsis with septic shock; D69.6 Thrombocytopenia, unspecified; D72.810 Lymphocytopenia; J10.08 Influenza due to other identified influenza virus with other specified pneumonia; J15.4 Pneumonia due to other streptococci; N39.0 Urinary tract infection, site not specified; R57.1 Hypovolemic shock; D69.59 Other secondary thrombocytopenia; K70.9 Alcoholic liver disease, unspecified; F10.239 Alcohol dependence with withdrawal, unspecified; R56.9 Unspecified convulsions; D64.9 Anemia, unspecified; K74.60 Unspecified cirrhosis of liver; E87.4 Mixed disorder of acid-base balance; E83.51 Hypocalcemia; E87.1 Hypo-osmolality and hyponatremia; I48.91 Unspecified atrial fibrillation; L89.156 Pressure-induced deep tissue damage of sacral region; E87.8 Other disorders of electrolyte and fluid balance, not elsewhere classified; M47.9 Spondylosis, unspecified; N18.1 Chronic kidney disease, stage 1; S00.03XA Contusion of scalp, initial encounter; Z66 Do not resuscitate; S80.211A Abrasion, right knee, initial encounter; X58.XXXA Exposure to other specified factors, initial encounter; R73.9 Hyperglycemia, unspecified; Z68.28 Body mass index [BMI] 28.0-28.9, adult; Y93.89 Activity, other specified; Y92.89 Other specified places as the place of occurrence of the external cause; Y99.8 Other external cause status
CPT/HCPCS: 31500; 31720; 36415; 36573; 36600; 71045; 71275; 76700; 76857; 80048; 80053; 80061; 80076; 80202; 80305; 80320; 81003; 82140; 82247; 82306; 82375; 82550; 82553; 82607; 82728; 82747; 82805; 82962; 83036; 83540; 83550; 83605; 83615; 83735; 83880; 83930; 83935; 84100; 84145; 84295; 84443; 84478; 84484; 85014; 85025; 85027; 85044; 85362; 85379; 85384; 86359; 86360; 86701; 86702; 86705; 86709; 86850; 86900; 87070; 87077; 87186; 87340; 87389; 87420; 87426; 87804; 93005; 93306; 94003; 94070; 94640; 94664; 98960; 99285; A4606; C1725; J0456; J0612; J0696; J1160; J1308; J1644; J1650; J1720; J1953; J2003; J2060; J2250; J2371; J2543; J2704; J3010; J3373; J3411; J3480; J3490; J7030; J7050; J7060; J7070; P9034; Q9967; G0480; J0131